=== PATIENT | female | born 1965 | race Caucasian/White ===

== ENCOUNTER 2022-03-01 00:59 | Emergency (ER) | payer MEDICARE, OTHER ==
[~2022-03-01] VITALS: Ht 167.6 cm; Wt 54.4 kg
--- NOTE | 2022-03-01 01:18 | NUR ---
PT BIBRA 89 FOR METH USE AND DEPAKOTE/ATIVAN NON-COMPLIENCE ACTING ERRATICALLY AT A [facility]. DENIES ANY OTHER SUBSTANCE USE. PT AWAKE AND ALERT X4 BREATHING EVEN AND UNLABORED. DENIES ANY SI/HI. PLACED ON MONITOR AND V/S WNL.
[2022-03-01] MEDS ORDERED: OLANZAPINE 10 MG VIAL IM ONE (01:28)
--- NOTE | 2022-03-01 01:31 | NUR ---
bark grinder at bedside for blood draw
[2022-03-01 01:50] LABS: BASOPHILS % (AUTO) 0.3 % (0.0-2.0); HEMATOCRIT 34 % (33-45); HEMOGLOBIN 11.7 g/dL (11.5-14.8); LYMPHOCYTES # (AUTO) 1.3 K/uL (0.8-4.8); LYMPHOCYTES % (AUTO) 15.3 % (20.0-44.0); MEAN CORPUSCULAR HGB CONC 35 g/dl (31.0-36.0); MEAN CORPUSCULAR VOLUME 91 fL (82-100); MONOCYTES # (AUTO) 1.2 K/uL (0.1-1.30); MONOCYTES % (AUTO) 13.7 % (2.0-12.0); NEUTROPHILS % (AUTO) 70.7 % (43.0-81.0); PLATELET COUNT (AUTO) 254 K/uL (150-450); RED BLOOD CELL COUNT(AUTO) 3.69 MIL/uL (4.0-5.2); WHITE BLOOD COUNT (AUTO) 8.5 K/uL (4.3-11.0)
--- NOTE | 2022-03-01 02:04 | NUR ---
pt unable to provide urine at this time
[2022-03-01 02:06] LABS: ALANINE AMINOTRANSFERASE 32 U/L (12-78); ALBUMIN 4.1 g/dL (3.4-5.0); ALKALINE PHOSPHATASE 86 U/L (46-116); ASPARTATE AMINOTRANSFERASE 51 U/L (15-37); BILIRUBIN,DIRECT 0.4 mg/dL (0.0-0.2); BILIRUBIN,TOTAL 1.5 mg/dL (0.2-1.0); CALCIUM, SERUM 8.6 mg/dL (8.5-10.1); CARBON DIOXIDE 26 mmol/L (21-32); CHLORIDE 102 mmol/L (98-107); CREATININE 1.8 mg/dL (0.6-1.3); GLUCOSE 95 mg/dL (74-106); POTASSIUM 3.5 mmol/L (3.5-5.1); SODIUM SERUM 140 mmol/L (136-145); TOTAL PROTEIN, SERUM 7.7 g/dL (6.4-8.2); UREA NITROGEN, BLOOD 40 mg/dL (7-18)
[2022-03-01 02:16] LABS: ACETAMINOPHEN 0 ug/ml (10-30); ALCOHOL, BLOOD < 3 mg/dL (0-0)
[2022-03-01] MEDS: OLANZAPINE 10 MG VIAL IM ONE (02:17)
--- NOTE | 2022-03-01 04:39 | NUR ---
patient awake, A, ox3. verbally responsive, ambulatory with steady gaits. PO intake tolerated well. reported feeling well and willing to leave. MD made aware
--- NOTE | 2022-03-01 05:05 | NUR ---
patient is medically stable for D/C. Patient discharged to home in stable condition. Written and verbal after care instructions given. Patient verbalizes understanding of instruction.
[2022-03-01 05:06] VITALS: BP 118/75
== END 2022-03-01 05:06 | disposition home or self-care (01) ==
LOC: ER 01:01
DX: F15.10 Other stimulant abuse, uncomplicated (principal)
CPT/HCPCS: 36415; 80048; 80076; 80143; 80320; 85025; 96372; 99283; J3490; G0480